=== PATIENT | male | born 1990 | race Caucasian/White ===

== ENCOUNTER 2018-04-18 15:47 | Emergency (ER) | payer SELFPAY ==
[~2018-04-18] VITALS: Ht 185.4 cm; Wt 86.4 kg
[2018-04-18 18:14] VITALS: BP 131/62
== END 2018-04-18 18:25 | disposition home or self-care (01) ==
LOC: EMS 15:47
DX: F10.129 Alcohol abuse with intoxication, unspecified (principal); F17.290 Nicotine dependence, other tobacco product, uncomplicated
CPT/HCPCS: 36415; 70450; 99285; G0480